=== PATIENT | female | born 1985 | race Caucasian/White ===

== ENCOUNTER 2024-08-30 14:20 | Emergency (ER) | payer BC, OTHER ==
[~2024-08-30] VITALS: Ht 152.4 cm; Wt 63.5 kg
[2024-08-30 15:40] VITALS: BP 124/81; O2SAT 100
== END 2024-08-30 15:41 | disposition home or self-care (01) ==
LOC: ER 14:20
DX: S30.821A Blister (nonthermal) of abdominal wall, initial encounter (principal); R58 Hemorrhage, not elsewhere classified; X58.XXXA Exposure to other specified factors, initial encounter; Y93.89 Activity, other specified; Y92.89 Other specified places as the place of occurrence of the external cause; Y99.8 Other external cause status
CPT/HCPCS: A4606; A4663